=== PATIENT | female | born 2000 | race African-American/Black ===

== ENCOUNTER 2024-10-28 16:10 | Emergency (ER) | payer SELFPAY ==
[~2024-10-28] VITALS: Ht 149.9 cm; Wt 49.1 kg
--- NOTE | 2024-10-28 16:39 | ED.PDOC ---
History of Present Illness HPI Comments This patient is a pleasant 24-year-old female who arrives to the ED today for evaluation of headache concerns status post head trauma yesterday. Patient states she was getting up from a leaned over position and struck her head on a cabinet drawer. Patient denies any LOC or blood loss. Patient arrives today with complaints of headache and some mild nausea. Patient denies any altered mental status. Vital signs were stable on arrival. Chief Complaint: Head Injury Time Seen by MD: 16:30 Reviewed Notes: Nurses Notes, Medications, Allergies Information Source: Patient Mode of Arrival: Ambulatory Severity: Mild Timing: Days Duration: Since onset Prehospital treatment: None Past Medical History PAST MEDICAL HISTORY: Denies Surgical History: Denies all surgeries FILM REPRODUCER History: No Pertinent FILM REPRODUCER History Family History Family History: Unknown Social History Smoker: Non-Smoker Alcohol: Denies ETOH Use Drugs: Denies Drug Use Lives In: Home Constitutional: denies: chills, diaphoresis, fatigue, fever, malaise, sweats, weakness, others EENTM: denies: blurred vision, double vision, ear bleeding, ear discharge, ear drainage, ear pain, ear ringing, eye pain, eye redness, hearing loss, mouth pain, mouth swelling, nasal discharge, nose bleeding, nose congestion, nose pain, photophobia, tearing, throat pain, throat swelling, voice changes, others Respiratory: denies: cough, hemoptysis, orthopnea, SOB at rest, shortness of breath, SOB with excertion, stridor, wheezing, others Cardiovascular: denies: chest pain, dizzy spells, diaphoresis, Dyspnea on exertion, edema, irregular heart beat, left arm pain, lightheadedness, palpitations, PND, syncope, others Gastrointestinal: reports: nausea; denies: abdomen distended, abdominal pain, blood streaked bowels, constipated, diarrhea, dysphagia, difficulty swallowing, hematemesis, melena, poor appetite, poor fluid intake, rectal bleeding, rectal pain, vomiting, others Genitourinary: denies: abnormal vagina bleeding, burning, dyspareunia, dysuria, flank pain, frequency, hematuria, incontinence, pain, , vagina discharge, urgency, others Neurological: reports: headache, others (lt forehead pain); denies: dizziness, fainting, left sided numbness, left sided weakness, numbness, paresthesia, pre- existing deficit, right sided numbness, right sided weakness, seizure, speech problems, tingling, tremors, weakness Musculoskeletal: denies: back pain, gout, joint pain, joint swelling, muscle pain, muscle stiffness, neck pain, others Integumetry: denies: bruises, change in color, change in hair/nails, dryness, laceration, lesions, lumps, rash, wounds, others Allergic/Immunocompromised: denies: Difficulty Healing, Frequent Infections, Hives, Itching, others Hematologic/Lymphatic: denies: anemia, blood clots, easy bleeding, easy bru ising, swollen glands, others Endocrine: denies: excessive hunger, excessive sweating, excessive thirst, e xcessive urination, flushing, intolerance to cold, intolerance to heat, unexplained weight gain, unexplained weight loss, others Psychiatric: denies: anxiety, bipolar disorder, depression, hopeless, panic disorder, schizophrenia, sleepless, suicidal, others All Other Systems: Reviewed and Negative Physical Exam General Appearance: Moderate Distress (Moderate distress due to headache concerns.), Normal HEENT: Head ( Unremarkable cranial exam. Point of impact across the forehead was unremarkable for any signs of trauma. No skull depressions or deformities. No hematoma formation.), Normal ENT Inspection, Pharynx Normal, TMs Normal Neck: Full Range of Motion, Non-Tender, Normal, Normal Inspection Respiratory: Chest Non-Tender, Lungs Clear, No Accessory Muscle Use, No Respiratory Distress, Normal Breath Sounds Cardiovascular: No Edema, No JVD, No Murmur, No Gallop, Normal Peripheral Pulses, Regular Rate/Rhythm Breast Exam: Deferred Gastrointestinal: No Organomegaly, Non Tender, No Pulsatile Mass, Normal Bowel Sounds, Soft Genitalia: Deferred Pelvic: Deferred Rectal: Deferred Extremities: No calf tenderness, Normal capillary refill, Normal inspection, Normal range of motion, Non-tender, No pedal edema Musculoskeletal : Apperance: Normal Neurologic: Alert, No Motor Deficits, Normal Affect, Normal Mood, No Sensory Deficits Cerebellar Function: Normal Reflexes: Normal Skin: Dry, Normal Color, Warm Lymphatic: No Adenopathy Was a procedure done? Was a procedure done?: No Differential Dx Considerations may include: Head trauma, headache, concussion X-Ray, Labs, Meds, VS Vital Signs Date Time Temp Pulse Resp B/P (MAP) Pulse Ox O2 Delivery O2 Flow Rate FiO2 10/28/24 16:39 97.8 80 16 108/71 (83) 99 97.8 X-Ray, Labs, Meds, VS Comment Spent time discussing the patient's concerns with her. Advised that she did not require imaging studies as the patient did not have any loss of consciousness or other concerns that would require a CT evaluation. Patient's headache and nausea were manage. Advised patient utilize medication for the next few days as needed. Time of 1ST Reevaluation: 17:03 Reevaluation 1ST: Improved Consultation: PCP Patient Education/Counseling: Diagnosis, Treatment Family Education/Counseling: Diagnosis, Treatment, No Family Present Departure 1 Departure Time of Disposition: 17:03 Impression: Primary Impression: Head injury Disposition: HOME / SELF CARE / HOMELESS Condition: Stable Additional Instructions: Advised patient utilize medication as needed for pain relief over the next few days. e-Prescriptions Ondansetron Odt 4MG Tab (ZOFRAN PO) 4 Mg Tb 4 MG PO Q6HP PRN, #15 TAB ODT TAB-DISSOLVE IN MOUTH, THEN SWALLOW Prov: JAIDEN COLEMAN PAC 10/28/24 Ibuprofen (Ibuprofen) 600 Mg Tab 1 TAB PO Q6HP PRN, #15 TAB Prov: JAIDEN COLEMAN PAC 10/28/24 Discharged With: Self, Friend Critical Care Note Critical Care Time?: No Stability Stability form required: No Heart Score Heart Score: Heart Score Response (Comments) Value History N/A 0 EKG N/A 0 Age N/A 0 Risk Factors N/A 0 Troponin N/A 0 Total 0 I personally scribed for JAIDEN COLEMAN PAC ([email or web address]) on 10/28/24 at 16:39. Electronically submitted by Eleni Martin ([email or web address]). JAIDEN COLEMAN PAC Oct 28, 2024 16:39
[2024-10-28] MEDS ORDERED: IBUP-1454 PO (17:04)
[2024-10-28] MEDS ORDERED: ZOFR4T PO (17:04)
[2024-10-28] MEDS: HYDROcodone-ACET 5/325MG TAB PO ONE (17:38)
[2024-10-28] MEDS: KETOROLAC TROMETH 60MG/2ML VIAL IM ONE (17:38)
[2024-10-28] MEDS: ONDANSETRON ODT 4 MG TAB PO ONE (17:38)
[2024-10-28 17:44] VITALS: BP 125/88; PULSE 82; RESP 18; TEMP 98.2; O2SAT 98
== END 2024-10-28 17:47 | disposition home or self-care (01) ==
LOC: ER 16:10
DX: S09.90XA Unspecified injury of head, initial encounter (principal); G44.309 Post-traumatic headache, unspecified, not intractable; W22.03XA Walked into furniture, initial encounter; Y93.89 Activity, other specified; Y92.89 Other specified places as the place of occurrence of the external cause; Y99.8 Other external cause status
CPT/HCPCS: 96372; 99283; J1885; Q0162